=== PATIENT | male | born 1945 | race Two or more races ===

== ENCOUNTER 2021-03-07 11:13 | Outpatient (CLI) | payer OTHER ==
[~2021-03-07 11:13] MED LIST: HYDROCHLOROTHIA25 MG PO; TRICOR145 MG PO; VITAMIN D22000 UNIT PO; ZOCOR20 MG PO
== END 2021-03-07 11:18 | disposition home or self-care (01) ==
LOC: NUCLEAR 11:13
PROVIDERS: ATTEND Internal Medicine
DX: I11.9 Hypertensive heart disease without heart failure (principal)

== ENCOUNTER 2022-11-11 17:48 | Emergency (ER) | payer OTHER ==
[~2022-11-11] VITALS: Ht 182.9 cm; Wt 94.3 kg
== END 2022-11-12 | disposition home or self-care (01) ==
LOC: ER 17:48
DX: R42 Dizziness and giddiness (principal); E11.9 Type 2 diabetes mellitus without complications; E78.00 Pure hypercholesterolemia, unspecified; I10 Essential (primary) hypertension

== ENCOUNTER 2024-09-18 14:08 | Emergency (ER) | payer OTHER ==
[~2024-09-18] VITALS: Ht 182.9 cm; Wt 93.9 kg
[2024-09-18] MEDS ORDERED: LOSARTAN-HCTZ1 EAC1 PO (14:28)
[2024-09-18] MEDS ORDERED: AMLODIPINE BESYL5 MG PO (14:29)
[2024-09-18] MEDS ORDERED: MECLIZINE HCL 25 MG TABLET PO ONE ×2 (15:44→15:45)
[2024-09-18] MEDS ORDERED: ANTIVERT25 M2 PO (15:50)
== END 2024-09-18 15:55 | disposition home or self-care (01) ==
LOC: ER 14:10
DX: H81.10 Benign paroxysmal vertigo, unspecified ear (principal); R53.1 Weakness; I10 Essential (primary) hypertension; E11.9 Type 2 diabetes mellitus without complications